=== PATIENT | male | born 1950 | race Asian ===

== ENCOUNTER 2022-01-24 11:25 | Emergency (ER) | payer OTHER, MEDICAID ==
[~2022-01-24] VITALS: Ht 162.6 cm; Wt 67.1 kg
[2022-01-24 11:30] VITALS: BP_SYST 151
--- NOTE | 2022-01-24 11:30 | NUR ---
Patient to ER bed 5 to gown for evaluation. Side rails up. Report given to DINAH.
--- NOTE | 2022-01-24 11:35 | NUR ---
PT CAME IN FROM HOME, STATES SLIP AND FALL OUTSIDE YESTERDAY WHILE SPRAYING FOR BUGS. TODAY R KNEE AND LEFT SHOULDER/CLAVICLE HURTS 07/29. PT IS AMBUALTORY, AAOX4, VSS
--- NOTE | 2022-01-24 11:35 | NUR ---
RECEIVED PT FROM AMANDA GREENE. PT BIBS FOR PAIN TO L KNEE AND R SHOULDER, SKIN INTACT. PT IS AAOX4. ON R/A. DENIES N/V/D/C.. PERIPHERAL PULSES NORMAL. SIDERAILS UP X2.
--- NOTE | 2022-01-24 11:45 | NUR ---
ER DR. HOWELL AT THE BEDSIDE EXAMINING PT
--- NOTE | 2022-01-24 12:21 | NUR ---
PT TAKEN TO XRAY.
--- NOTE | 2022-01-24 12:35 | NUR ---
DR. HOWELL AT BEDSIDE TO DISCUSS POC.
[2022-01-24] MEDS ORDERED: IBUP-2018 PO (12:55)
[2022-01-24 13:22] VITALS: BP_SYST 142
--- NOTE | 2022-01-24 13:24 | NUR ---
Patient given written and verbal discharge instructions and verbalizes understanding. ER MD discussed with patient the results and treatment provided. Patient in stable condition. ID arm band removed. IV catheter removed intact and dressing applied, no active bleeding. Rx of IBUPROPHEN given. Patient educated on pain management and to follow up with PMD. Pain Scale 2/10. Opportunity for questions provided and answered. Medication side effect fact sheet provided. PT GIVEN KNEE STABILIZER WITH TEACHING ON HOW TO APPLY. PT DEMONSTRATED LEARNING.
== END 2022-01-24 13:24 | disposition home or self-care (01) ==
LOC: SED 11:25
DX: S82.034A Nondisplaced transverse fracture of right patella, initial encounter for closed fracture (principal); M25.512 Pain in left shoulder; Z79.899 Other long term (current) drug therapy; W01.0XXA Fall on same level from slipping, tripping and stumbling without subsequent striking against object, initial encounter; Y93.89 Activity, other specified; Y92.89 Other specified places as the place of occurrence of the external cause; Y99.8 Other external cause status
CPT/HCPCS: 73000-TC; 73564; 99284

== ENCOUNTER 2022-12-18 23:52 | Emergency (ER) | payer OTHER, MEDICAID ==
[~2022-12-18] VITALS: Ht 152.4 cm; Wt 67.1 kg
[~2022-12-18 23:52] MED LIST: IBUP-2018 PO
[2022-12-18 23:59] VITALS: BP_SYST 119; PULSE 59; RESP 20; TEMP 97.2; O2SAT 94
[2022-12-19] MEDS ORDERED: DIPHTH,PERTUSS(ACELL),TET VAC 0.5 ML VIAL (Tdap) I.M. ONE (00:30)
[2022-12-19 00:57] LABS: BASOPHILS % (AUTO) 0.9 % (0.0-2.0); EOSINOPHILS # (AUTO) 0.1 K/uL (0.0-0.4); EOSINOPHILS % (AUTO) 3.5 % (0.0-4.0); HEMATOCRIT 33.9 % (36-54); HEMOGLOBIN 11.5 g/dL (14.0-18.0); LYMPHOCYTES # (AUTO) 1.8 K/uL (1.0-5.5); LYMPHOCYTES % (AUTO) 47.8 % (20.5-51.5); MEAN CORPUSCULAR HEMOGLOBIN 31 pg (27-31); MEAN CORPUSCULAR HGB CONC 34 % (32-36); MEAN CORPUSCULAR VOLUME 92 fL (79.0-98.0); MONOCYTES # (AUTO) 0.4 K/uL (0.0-1.0); NEUTROPHILS # (AUTO) 1.3 K/uL (1.8-7.7); NEUTROPHILS % (AUTO) 35.8 % (40.0-70.0); PLATELET COUNT (AUTO) 186 K/uL (130-430); RED BLOOD CELL COUNT(AUTO) 3.67 MIL/uL (4.2-6.2); RED CELL DISTRIBUTION WIDTH 14.6 % (9.0-15.0); WHITE BLOOD COUNT (AUTO) 3.8 K/uL (4.8-10.8)
[2022-12-19 01:26] LABS: ANION GAP 10 (5-15); CALCIUM 8.3 mg/dL (8.4-11.0); CARBON DIOXIDE 25 mmol/L (23-29); CHLORIDE 103 mmol/L (98-107); CREATININE 0.77 mg/dL (0.55-1.30); GLUCOSE 141 mg/dL (74-106); POTASSIUM 3.8 mmol/L (3.5-5.1); SODIUM SERUM 138 mmol/L (136-145); UREA NITROGEN, BLOOD 24 mg/dL (8-21)
[2022-12-19 01:30] LABS: ALANINE AMINOTRANSFERASE 28 U/L (12-78); ALBUMIN 3.1 g/dL (3.4-4.8); ASPARTATE AMINOTRANSFERASE 41 U/L (10-37); SALICYLATE 4 mg/dL (3-30); TOTAL BILIRUBIN 0.6 mg/dL (0.0-1.0); TOTAL PROTEIN, SERUM 7.2 g/dL (6.4-8.3)
[2022-12-19 01:55] LABS: ALCOHOL, BLOOD < 3 mg/dL (<10)
[2022-12-19 02:51] LABS: BILIRUBIN,URINE NEGATIVE (NEGATIVE); GLUCOSE,URINE NEGATIVE (NEGATIVE); NITRITE, URINE NEGATIVE (NEGATIVE); PROTEIN URINE NEGATIVE (NEGATIVE); UROBILINOGEN,URINE 0.2 (0.2-1.0)
[2022-12-19 02:54] LABS: BLOOD, URINE TRACE (NEGATIVE); CLARITY/URINE CLEAR (CLEAR); COLOR,URINE YELLOW (YELLOW); KETONES,URINE NEGATIVE (NEGATIVE); LEUKOCYTE ESTERASE ,URINE NEGATIVE (NEGATIVE)
[2022-12-19 03:41] LABS: BACTERIA,URINE RARE /HPF (None Seen)
[2022-12-19 04:08] LABS: BARBITURATE, URINE NEGATIVE (NEG <=200); BENZODIAZEPINE, URINE NEGATIVE (NEG <=150); CANNABINOID, URINE NEGATIVE (NEG <=50); COCAINE, URINE NEGATIVE (NEG <=150); METHAMPHETAMINES SCREEN,URINE NEGATIVE (NEG <=500); OPIATE, URINE NEGATIVE (NEG <=100); PHENCYCLIDINE SCREEN,URINE NEGATIVE (NEG <=25); UR TRICYCLIC ANTIDEPRESSANTS NEGATIVE (NEG <=300); URINE AMPHETAMINE NEGATIVE (NEG <=500); URINE METHADONE NEGATIVE (NEG <=200); URINE OXYCODONE SCREEN NEGATIVE (NEG <=100); URINE PROPOXYPHENE SCREEN NEGATIVE (NEG <=300)
[2022-12-19 05:27] VITALS: BP_SYST 109; PULSE 68; RESP 16; TEMP 98.2; O2SAT 98
[2022-12-19 05:29] LABS: ACETAMINOPHEN 2 ug/mL (1-30)
== END 2022-12-19 05:27 | disposition home or self-care (01) ==
LOC: SED 23:52
DX: S91.312A Laceration without foreign body, left foot, initial encounter (principal); T42.6X5A Adverse effect of other antiepileptic and sedative-hypnotic drugs, initial encounter; G47.10 Hypersomnia, unspecified; R41.82 Altered mental status, unspecified; I10 Essential (primary) hypertension; Z79.899 Other long term (current) drug therapy; W20.8XXA Other cause of strike by thrown, projected or falling object, initial encounter; Y93.89 Activity, other specified; Y92.89 Other specified places as the place of occurrence of the external cause; Y99.8 Other external cause status
CPT/HCPCS: 99285; 80307; 80053; 85025; 36415; 81000; 70450; 76376; 90715; 90471; G0480; G0481; G0482